=== PATIENT | female | born 1990 | race African-American/Black ===

== ENCOUNTER 2018-10-11 08:33 | Emergency (ER) | payer OTHER ==
[~2018-10-11] VITALS: Ht 152.4 cm; Wt 53.5 kg
== END 2018-10-11 10:11 | disposition home or self-care (01) ==
LOC: ER 08:33
DX: L02.01 Cutaneous abscess of face (principal)

== ENCOUNTER 2018-10-19 10:52 | Emergency (ER) | payer OTHER ==
[~2018-10-19] VITALS: Ht 152.4 cm; Wt 52.2 kg
[2018-10-19] MEDS ORDERED: MONODOX100 MG PO (15:44)
[2018-10-19] MEDS ORDERED: KETO10TA2 PO (15:44)
== END 2018-10-19 16:38 | disposition home or self-care (01) ==
LOC: ER 10:52
DX: L02.01 Cutaneous abscess of face (principal)

== ENCOUNTER 2020-12-14 09:20 | Emergency (ER) | payer OTHER ==
[~2020-12-14] VITALS: Ht 149.9 cm; Wt 53.5 kg
[~2020-12-14 09:20] MED LIST: KETO10TA2 PO; MONODOX100 MG PO
== END 2020-12-14 12:55 | disposition home or self-care (01) ==
LOC: ER 09:20
DX: R51.9 Headache, unspecified (principal)

== ENCOUNTER 2020-12-19 13:59 | Outpatient (CLI) | payer OTHER | END 2020-12-19 14:00 | disposition home or self-care (01) | LOC: PPH VACUNA 13:59 | DX: Z23 Encounter for immunization (principal) ==

== ENCOUNTER 2021-01-09 08:00 | Outpatient (CLI) | payer OTHER | END 2021-01-09 08:30 | disposition home or self-care (01) | LOC: PPH VACUNA 08:00 | DX: Z23 Encounter for immunization (principal) ==

== ENCOUNTER 2021-12-23 10:15 | Emergency (ER) | payer OTHER ==
[~2021-12-23] VITALS: Ht 152.4 cm; Wt 54.4 kg
== END 2021-12-23 10:56 | disposition home or self-care (01) ==
LOC: ER 10:15
DX: M77.8 Other enthesopathies, not elsewhere classified (principal)